=== PATIENT | female | born 1995 | race Caucasian/White ===

== ENCOUNTER → 2017-12-24 | Outpatient (CLI) | payer OTHER ==
--- NOTE | 2017-12-24 12:41 | Diagnostic Imaging Report ---
EXAM: US ABDOMEN COMPLETE DATE: 12/24/2017 11:29 AM INDICATION: Abdominal pain. COMPARISON: None TECHNIQUE: Transverse and longitudinal haddad scale and color doppler sonographic images of the upper abdomen were obtained. FINDINGS: LIVER Measures 13.5 cm in the right midclavicular line. Normal echogenicity of the liver with normal contour, no masses. SPLEEN Measures 8.6 cm in maximum diameter. Normal echogenicity, no masses. GALLBLADDER The gallbladder is filled with echogenic foci with associated shadowing, a [id number] sign is noted. No evidence of pericholecystic fluid or wall thickening. Negative reported sonographic Lewis's sign. BILE DUCTS No intra nor extra-hepatic biliary dilation. Common bile duct measures 0.4 cm PANCREAS: Visualized portions are normal. RIGHT KIDNEY: 11.7 cm Echogenicity: The medullary pyramids are echogenic. Collecting System: No hydronephrosis Stones: None Cyst/Mass: None LEFT KIDNEY: 10.9 cm Echogenicity: The medullary pyramids are echogenic. Collecting System: No hydronephrosis Stones: None Cyst/Mass: None VESSELS: Aorta: Visualized portions are within normal size limits Inferior Vena Cava: Visualized portions are normal Main Portal Vein: Measures 0.8 cm, normal size with hepatopetal flow. FREE FLUID: None IMPRESSION: Wall echo shadow sign in the gallbladder, suggestive of gallstones. The differential includes porcelain gallbladder and emphysematous cholecystitis although these are considered less likely. CT may be considered for further evaluation. Echogenic renal medullary pyramids, a nonspecific finding. Differential include medullary nephrocalcinosis from hyperparathyroidism, medullary sponge kidney, or hypervitaminosis D. Signed by: Dr. Francis Garnica MD on 12/24/2017 12:37 PM
== END ==
LOC: US 11:19
PROVIDERS: ATTEND Family Medicine
DX: R10.9 Unspecified abdominal pain (principal)
CPT/HCPCS: 76700